=== PATIENT | male | born 1950 | race Caucasian/White ===

== ENCOUNTER → 2022-12-11 14:36 | Outpatient (CLI) | payer MEDICARE, OTHER, SELFPAY ==
--- NOTE | 2022-12-15 07:29 | PM.PFT.1 ---
Pulmonary Function Test Referral & Results Date Patient Seen: 12/11/22 Results: The spirometry demonstrates an FVC of 4.73 L which is 99% of predicted. The FEV1 was measured at 2.96 L which is 84% of predicted. The FEV1/FVC ratio was 63 which is 84% of predicted. Following the administration of bronchodilator there was 20% improvement in FEF 25-75%. Lung volumes show an SVC of 4.41 L which is 90% of predicted. The diffusing capacity was measured at 26.33 which is 75% of predicted. No hemoglobin value was provided, so no correction for potential anemia could be made, if appropriate. The maximum voluntary ventilation was normal Interpretation: This study demonstrates mild obstructive lung disease based on reduction FEV1 as well as FEV1/FVC ratio. There is evidence of some benefit following bronchodilator particularly small airway flow as demonstrated by the improvement in the FEF 25-75% as above There is a moderate reduction diffusing capacity suggesting the presence of disease at the capillary alveolar level as well There is a minimal reduction in lung volumes suggesting the possibility of very minimal restrictive lung disease Clinical correlation suggested
== END ==
PROVIDERS: Family Provider Family Medicine; PCP Family Medicine; Referring Provider Internal Medicine Pulmonary Disease; Visit Provider Internal Medicine Pulmonary Disease
DX: J47.9 Bronchiectasis, uncomplicated (principal); J98.8 Other specified respiratory disorders
CPT/HCPCS: 94060; 94726; 94729

== ENCOUNTER → 2023-05-07 15:11 | Outpatient (CLI) | payer MEDICARE, OTHER, SELFPAY ==
--- NOTE | 2023-05-07 | DI.CT.S_ITS ---
PROCEDURE: CT CHEST WO CON INDICATIONS: Bronchiectasis, uncomplicated TECHNIQUE: Noncontrast 5 mm thick sections acquired from the pulmonary apices to the posterior costophrenic angles. 1 mm lung window, 5 mm thick coronal and sagittal and 7 mm axial MIP reformats were then acquired. For radiation dose reduction, the following was used: automated exposure control, adjustment of mA and/or kV according to patient size. COMPARISON: [facility], CT, CT CHEST WITHOUT CONTRAST, 10/20/2022, 15:51. FINDINGS: Image quality: Excellent. Lungs and pleura: Interval decrease in consolidation of the medial right middle lobe. Persistent bronchiectasis with mucous impaction and tree-in-bud nodules. Similar volume loss present. There are new dependent regions of mucous impaction and tree-in-bud nodules in the left lower lobe. Mediastinum: Heart size is normal. No pericardial effusion. No mediastinal adenopathy by size criteria. Thoracic aorta and central pulmonary arteries are normal in size. Esophagus is normal in caliber. No hiatal hernia. Bones and chest wall: No suspicious bony lesions. No vertebral body compression fractures. No axillary or supraclavicular adenopathy by size criteria. Thyroid gland is unremarkable . Abdomen: Visualized upper abdominal solid organs and bowel loops appear normal in the absence of contrast. IMPRESSION: Waxing and waning mucous impaction, centrilobular nodules and tree-in-bud nodules, particularly within the right middle lobe and lingula. 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 Additional site of dependent centrilobular nodules and tree-in-bud nodules within the left lower lobe. This could be a continuation of ongoing infection, but aspiration is not excluded given distribution. Correlate with risk factors of aspiration and consider speech pathology consultation. Dictated by: Bro Helm M.D. on 05/10/2023 at 9:28 Approved by: Bro Helm M.D. on 05/10/2023 at 9:41
== END ==
PROVIDERS: Family Provider Family Medicine; PCP Family Medicine; Referring Provider Internal Medicine Pulmonary Disease; Visit Provider Internal Medicine Pulmonary Disease
DX: J47.9 Bronchiectasis, uncomplicated (principal)
CPT/HCPCS: 71250

== ENCOUNTER → 2023-06-30 10:27 | Outpatient (CLI) | payer MEDICARE, OTHER, SELFPAY ==
--- NOTE | 2023-06-30 | DI.RAD.S_ITS ---
PROCEDURE: FL BARIUM SWALLOW INDICATIONS: Unspecified foreign body in respiratory tract, par COMPARISON: None. FINDINGS: Function: There is normal esophageal peristalsis. No elicited gastroesophageal reflux. There is normal transit of a calibrated barium tablet through the esophagus into the stomach. Morphology: Air-contrast images demonstrate normal mucosal morphology. Single contrast views show no esophageal strictures, extrinsic mass effects, or diverticula. Limited images of the stomach demonstrate normal appearance. IMPRESSION: No evidence of aspiration or penetration. Please see speech pathology report for complete findings. Dictated by: Samm Roque M.D. on 06/30/2023 at 14:37 Approved by: Samm Roque M.D. on 06/30/2023 at 14:38
--- NOTE | 2023-06-30 14:28 | ST.SWALLOW ---
Visit Care Team Role Provider Type Betsy Chambers MD Family Provider Non-Staff Primary Care Provider Specialty: Family Practice Address: [address] [place] [address], [id number] Email: Rebecca Wright MD Attending Provider Non-Staff Referring Provider Specialty: Pulmonology Address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 Wright, Pulmonology Setting Setting Outpatient Care Patient Information Identification Type Name,Date of Patient History Pt was seen for a Modified Barium Swallow Study (MBSS) at the referral of his pulmnologist , Dr. Rebecca Wright. Pt was referred for MBSS due to suspicion of recurrent aspiration. Pt had a chest CT on 05/07/23, which indicated ( per report): Waxing and waning mucous impaction, centrilobular nodules and tree -in-bud nodules, particularly within the right middle lobe and lingula. 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 Additional site of dependent centrilobular nodules and tree-in-bud nodules within the left lower lobe. This could be a continuation of ongoing infection, but aspiration is not excluded given distribution. MBSS recommended. Pt reports a PMH that includes : bronchiectomy diagnosis 2014 ; pluricy; and pneumonia 2019 and 2014. Most recently, in August 2022, the pt had pneumonia for 4 months before being treated in November 2022. During that time he reported experiencing sternal pressure with swallowing that resolved with the PNA. Pt noted that in 2019, he was under a lot of stress and was using THC for anxiety. He stated that as a result of smoking THC, he lost his voice . Additionally, during that time, pt reported an incident where he started to eat a hot waffle with jam. He stated that it was so hot that he gasped, inhaling a piece of the waffle. After that incident he had difficulty with swallowing, which he states has since resolved. Subjective Observations Pt was seated in the fluoroscopy chair with instructions and procedure described for him. Pt indicated he understood and agreed to proceed. Patient Positioning Position View Lat-A/P Imaging Lateral View Textures Administered Trials Presented Thin Liquid via Spoon (IDDSI 0 ),Thin Liquid via Cup (IDDSI 0 ),Extremely Thick Liquid via Spoon (IDDSI 4),Regular (IDDSI 7) Barium Tablet Yes The IDDSI Framework Protocol: IDDSI.1 Oral Impairment Source: The Modified Barium Swallow Impairment Profile (MBSImP??) Lip Closure No labial escape Tongue Control During Bolus Hold Cohesive bolus between tongue to palatal seal Bolus Preparation/Mastication Timely & efficient chewing & mashing Bolus Transport/Lingual Motion Brisk tongue motion Oral Residue Complete oral clearance Initiation of Pharyngeal Swallow Bolus head at posterior angle of ramus (first hyoid excursion) Additional Oral Impairment Observations OME and DKS were observed to be WNL. Mastication was adequate with rotary chew pattern. Bolus formation, control and AP transition were observed to be WNL. Pharyngeal Impairment Source: The Modified Barium Swallow Impairment Profile (MBSImP??) Soft Palate Elevation No bolus between soft palate & pharyngeal wall Laryngeal Elevation Comp.sup.move.thyroid cart.w/ comp.approx.arytenoids to epiglot petiole Anterior Hyoid Excursion Partial anterior movement Epiglottic Movement Complete inversion Laryngeal Vestibular Closure Complete; no air/contrast in laryngeal vestibule Pharyngeal Stripping Wave Present - complete Pharyngoesophageal Segment Opening Partial distention/partial duration; partial obstruction of flow Tongue Base Retraction No contrast between tongue base & posterior pharyngeal wall Pharyngeal Residue Collection of residue within/ on pharyngeal structures Location Diffuse (>3 areas) Additional Pharyngeal Impairment Mild base of tongue weakness Observations was observed with adequate laryngeal elevation. Minimal hyoid movement appeared to negatively affect the PES opening extension and duration . Trace pharyngeal pooling was observed in the valeculla and the pyriform sinuses with liquids and semi-solid trials. The greatest valecullar pooling was with the cookie trial. The valecullar pooling of the cookie, along with with the reduced PES opening, resulted in the pt needing ~7 swallows to clear half of a Tasneem Doone. All other observations of the pharyngeal swallow were observed to be WFL. No penetration nor aspiration was observed. A/P View Textures Administered Trials Presented Thin Liquid via Spoon (IDDSI 0 ),Regular (IDDSI 7) The IDDSI Framework Protocol: IDDSI.1 A/P View Observations Pharyngeal Contraction Complete Esophageal Clearance Upright Position Complete clearance; esophageal coating Vocal Fold Function Good Esophageal Function WFL Additional A-P Observations Thin barium liquid and an 11mm barium tablet were used in trials. Esophageal phase of swallow was observed to be WNL . Clinical Impressions Findings Overall, the pt's swallow was observed to be WFL. He does have greater difficulty with swallowing solids (See above pharyngeal phase details). He was eventually able to clear all residue without aspiration or laryngeal penetration. Patient Appropriate for Therapy No Recommendations Diet Comments No diet changes are recommended at this time
== END ==
PROVIDERS: Family Provider Family Medicine; PCP Family Medicine; Referring Provider Internal Medicine Pulmonary Disease; Visit Provider Internal Medicine Pulmonary Disease
DX: T17.908S Unspecified foreign body in respiratory tract, part unspecified causing other injury, sequela (principal)
CPT/HCPCS: 74220; 92611

== ENCOUNTER 2023-07-06 11:11 | Outpatient (RCR) | payer MEDICARE, OTHER, SELFPAY ==
--- NOTE | 2023-07-06 13:29 | ST.OPIE ---
Visit Care Team Role Provider Type Betsy Chambers MD Family Provider Non-Staff Primary Care Provider Specialty: Family Practice Address: [address] [place] [address], [address] Email: Rebecca Wright MD Attending Provider Non-Staff Referring Provider Specialty: Pulmonology Address: [facility] [place], [address] Email: Speech-Language Pathology Initial Evaluation DATABASE SECURITY EXPERT Clinical Swallow Evaluation Start: 07/06/23 13:00 Freq: Status: Active Protocol: Document 07/06/23 13:01 CHRISTO (Rec: 07/06/23 13:29 MA [id number]) Clinical Swallow Evaluation Session Time Visit Start Time 11:30 Visit Stop Time 12:30 Total Visit Minutes 60 Visit Information Visit Number 1 Plan of Care Dates Eval Only Insurance Information Medicare Referral Referring Provider Rebecca Wright Reason for Referral Aspiration, chronic cough Setting Assessment Location Outpatient Care Visit Type Note Type Initial evaluation Patient Information Identification Type Name History Pt is a 72 year old male seen this date for swallow evaluation. Pt was recently seen for a Modified Barium Swallow Study (MBSS) on 06/30/23 at the referral of his pulmnologist , Dr. Rebecca Wright. Pt was referred for MBSS due to suspicion of recurrent aspiration. Pt had a chest CT on 05/07/23, which indicated ( per report): Waxing and waning mucous impaction, centrilobular nodules and tree -in-bud nodules, particularly within the right middle lobe and lingula. 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 Additional site of dependent centrilobular nodules and tree-in-bud nodules within the left lower lobe. This could be a continuation of ongoing infection, but aspiration is not excluded given distribution. MBSS recommended. Pt reports a PMH that includes : bronchiectomy diagnosis 2014 ; pluricy; and pneumonia 2019 and 2014. Most recently, in August 2022, the pt had pneumonia for 4 months before being treated in November 2022. During that time he reported experiencing sternal pressure with swallowing that resolved with the PNA. Pt noted that in 2019, he was under a lot of stress and was using THC for anxiety. He stated that as a result of smoking THC, he lost his voice . Additionally, during that time, pt reported an incident where he started to eat a hot waffle with jam. He stated that it was so hot that he gasped, inhaling a piece of the waffle. After that incident he had difficulty with swallowing, which he states has since resolved. Difficulties following Pt timeline of events d/t Pt jumping around talking about events that happened from 2014 to 2022. However, Pt reports he had an endoscopy in October 2022 indicating, per patient, mild irriation, possible GERD . Pt reports he does not take medication for GERD and instead eases symptoms by following a strict diet as well as sleeping with head elevated. Pt denies any swallowing or breathing trouble at this time or issues with GERD. Pt denies any recent occurrences of choking/ coughing while eating and consumes regular solids and thin liquids at home. Pt reports he has been feeling good since being treated for PNA in November. Pt had a MBSS completed on with the following impressions/recommendations: Clinical Impressions Findings Overall, the pt's swallow was observed to be WFL. He does have greater difficulty with swallowing solids (See above pharyngeal phase details). He was eventually able to clear all residue without aspiration or laryngeal penetration. Patient Appropriate for Therapy No Recommendations Diet Comments No diet changes are recommended at this time Subjective Observations Pt arrived to evaluation on time. Pt communicated medical hx and hx of PNA/swallowing/ voice issues. However, Pt reports he does not have any swallowing issues at this time and denies any recent coughing/choking or feeling of food getting stuck. Reported by Patient/Caregiver Pain/Discomfort No Current Diet Regular (IDDSI 7) The IDDSI Framework Protocol: IDDSI.1 Objective Assessment Mental Status Alert,Responsive,Cooperative Oral Integrity WFL Dentition Within normal limits Comment OME appeared to be WNL. Food and Liquid Trials Position During Assessment Upright (90 degrees) Liquids Trialed Thin (IDDSI 0) Solid Trials Regular (IDDSI 7) Oral Impairment Within normal limits Oral Phase Comments Pt consumed about 4 oz of thin water via cup and 2 jerica crackers. Oral phase- for thin water Pt demonstrated good oral acceptance and containment, adequate sip size and rate, tiemly ap transport . For jerica crackers, Pt demonstrated adequate bite size and rate, timely mastication with timely ap transport. Pharyngeal Impairment Within normal limits Pharyngeal Phase Comments Pharyngeal phase for thin liquids demonstrated no overt s/s of aspiration/penetration with clear vocal quality. For jerica crackers Pt demonstrated no overt s/s of aspiration/penetration however multiple swallows to clear bolus. Pt did not report globus sesnsation or feeling of food stuck in throat. Pt independently alternated liquids/solids to assist with clearance. Fatigue/Endurance Endurance WNL The IDDSI Framework Protocol: IDDSI.1 Findings Swallowing Function Within normal limits Severity of Swallow Impairment Within normal limits Prognosis Good Impact on Safety and Functioning No limitations Recommendations Instrumental Assessment No Swallowing Treatment No Recommended Solids Regular (IDDSI 7) Recommended Liquids Thin (IDDSI 0) Other Recommendations ST recommends Pt continue to consume current diet of regular solids and thin liquids. ST provided Pt educational handout on reflex precautions. ST suggested Pt coming in for a few sessions to learn safe swallowing strategies/swallow exercises to address pharyngeal residue and reduced UES opening shown on MBSS. However, Pt declined therapy at this time and reported he is currently having no swallow issues and will get re-referred if swallowing difficulties start happening again. Safety Precautions/Swallowing Remain upright (90 degrees) Recommendations during all oral intake,Upright position at least 30 minutes after meals,Small bites and sips when eating,Slow rate; swallow between bites, Alternate liquids and solids Education Patient/Caregiver Education Described results of evaluation,Patient expressed understanding of evaluation
--- NOTE | 2023-07-06 13:30 | ST.OPPOC ---
Physical, Occupational & Speech Therapy At [facility] Visit Care Team Role Provider Type Betsy Chambers MD Family Provider Non-Staff Primary Care Provider Address: [place], [address] Rebecca Wright MD Attending Provider Non-Staff Referring Provider Address: [facility] [place], [address] Speech Pathology Plan of Care Plan of Care Dates Eval Only Referring Provider Rebecca Wright Patient History Pt is a 72 year old male seen this date for swallow evaluation. Pt was recently seen for a Modified Barium Swallow Study (MBSS) on 06/30/23 at the referral of his pulmnologist , Dr. Rebecca Wright. Pt was referred for MBSS due to suspicion of recurrent aspiration. Pt had a chest CT on 05/07/23, which indicated ( per report): Waxing and waning mucous impaction, centrilobular nodules and tree -in-bud nodules, particularly within the right middle lobe and lingula. 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 Additional site of dependent centrilobular nodules and tree-in-bud nodules within the left lower lobe. This could be a continuation of ongoing infection, but aspiration is not excluded given distribution. MBSS recommended. Pt reports a PMH that includes : bronchiectomy diagnosis 2014 ; pluricy; and pneumonia 2019 and 2014. Most recently, in August 2022, the pt had pneumonia for 4 months before being treated in November 2022. During that time he reported experiencing sternal pressure with swallowing that resolved with the PNA. Pt noted that in 2019, he was under a lot of stress and was using THC for anxiety. He stated that as a result of smoking THC, he lost his voice . Additionally, during that time, pt reported an incident where he started to eat a hot waffle with jam. He stated that it was so hot that he gasped, inhaling a piece of the waffle. After that incident he had difficulty with swallowing, which he states has since resolved. Difficulties following Pt timeline of events d/t Pt jumping around talking about events that happened from 2014 to 2022. However, Pt reports he had an endoscopy in October 2022 indicating, per patient, mild irriation, possible GERD. Pt reports he does not take medication for GERD and instead eases symptoms by following a strict diet as well as sleeping with head elevated. Pt denies any swallowing or breathing trouble at this time or issues with GERD. Pt denies any recent occurrences of choking/ coughing while eating and consumes regular solids and thin liquids at home. Pt reports he has been feeling good since being treated for PNA in November. Pt had a MBSS completed on 06/30/23 with the following impressions/recommendations: Clinical Impressions Findings Overall, the pt's swallow was observed to be WFL. He does have greater difficulty with swallowing solids (See above pharyngeal phase details). He was eventually able to clear all residue without aspiration or laryngeal penetration. Patient Appropriate for Therapy No Recommendations Diet Comments No diet changes are recommended at this time MBS Comments Overall, the pt's swallow was observed to be WFL . He does have greater difficulty with swallowing solids (See above pharyngeal phase details). He was eventually able to clear all residue without aspiration or laryngeal penetration. Comment: ST recommends Pt continue to consume current diet of regular solids and thin liquids. ST provided Pt educational handout on reflex precautions. ST suggested Pt come in for a few sessions to learn safe swallowing strategies/swallow exercises to address pharyngeal residue and reduced UES opening shown on MBSS. However, Pt declined therapy at this time and reported he is currently having no swallow issues and will get re-referred if swallowing difficulties start happening again. Electronically Signed by: ABDIEL Raymond 07/06/23 [id number] If you are in agreement with this Plan of Care, please return a signed and dated copy. I have reviewed this Plan of Care and certify that the skilled therapy services above are required to meet the patient?s needs. Physician Signature Date Printed Name and Credentials Clinical Instructor Signature Printed Name and Credentials
== END 2023-07-19 14:19 | disposition home or self-care (01) ==
LOC: SP 11:11
PROVIDERS: Family Provider Family Medicine; PCP Family Medicine; Referring Provider Internal Medicine Pulmonary Disease; Visit Provider Internal Medicine Pulmonary Disease
DX: R05.3 Chronic cough (principal); T17.908S Unspecified foreign body in respiratory tract, part unspecified causing other injury, sequela
CPT/HCPCS: 92610

== ENCOUNTER → 2024-03-29 12:52 | Outpatient (CLI) | payer MEDICARE, OTHER, SELFPAY ==
--- NOTE | 2024-03-29 12:53 | DI.CT.S_ITS ---
PROCEDURE: CT CHEST WO CON INDICATIONS: BRONCHIECTASIS W/O COMPLICATION TECHNIQUE: Noncontrast 5 mm thick sections acquired from the pulmonary apices to the posterior costophrenic angles. 1 mm lung window, 5 mm thick coronal and sagittal and 7 mm axial MIP reformats were then acquired. For radiation dose reduction, the following was used: automated exposure control, adjustment of mA and/or kV according to patient size. COMPARISON: Outside Facility, , [facility], 11/24/2022, 17:25. [facility], CT, CT CHEST WITHOUT CONTRAST, 10/20/2022, 15:51. [facility], CT, CT CHEST WO CON, 05/07/2023, 15:15. FINDINGS: Image quality: Diagnostic. Lower Neck: No enlarged lymph nodes. Thyroid: No thyroid nodules which require sonographic follow up, per consensus guidelines. Axillae: No enlarged lymph nodes. Chest Wall: Unremarkable. Bones: No acute fractures. No aggressive appearing lytic or blastic osseous lesions. Minimal multilevel degenerative changes of the spine. Lungs and Pleura: No pneumothorax or pleural effusions. Compared to CT chest dated May 07, 2023, small new centrilobular/tree-in-bud nodules in the right lower lobe best seen on the MIP reconstructions (4/111). Similar to slightly increased centrilobular /tree-in-bud nodules in the lingula and middle lobe as well as mucous plugging, best seen on the MIP reconstruction (4/98). Subsegmental volume loss in the middle lobe and lingula with associated bronchiectasis, as before. Similar appearance of centrilobular and tree-in-bud nodules in the left lower lobe (4/102). Biapical pleural parenchymal scarring. Multiple scattered solid pulmonary nodules which are stable. For example: -right upper lobe, measures 2 mm (3/136) -left upper lobe, measures 2 mm (3/163). Heart: Heart size is normal. No pericardial effusion. Thoracic Vessels: The aorta and pulmonary arteries demonstrate normal size. Left vertebral artery arises directly from the aortic arch, normal variant. Mediastinum and Jessica: No enlarged lymph nodes. Esophagus: No wall thickening. No hiatal hernia. Upper Abdomen: Visualized upper abdomen solid organs and bowel loops appear normal. IMPRESSION: 1. Compared to CT chest dated May 07, 2023, small new centrilobular/tree-in-bud nodules in the right lower lobe suggestive of infection and/or atypical inflammation. 2. As before, there is waxing and waning centrilobular and tree-in-bud nodules as well as mucous impaction, notably in the middle lobe and lingula with associated bronchiectasis/subsegmental volume loss which may represent non tuberculosis mycobacterium infection. 3. Multiple subcentimeter scattered solid, noncalcified pulmonary nodules which are stable. Dictated by: Linnea Gibbons M.D. on 03/30/2024 at 12:26 Approved by: Linnea Gibbons M.D. on 03/30/2024 at 12:40
== END ==
PROVIDERS: Family Provider Family Medicine; PCP Family Medicine; Referring Provider Internal Medicine Pulmonary Disease; Visit Provider Internal Medicine Pulmonary Disease
DX: J47.9 Bronchiectasis, uncomplicated (principal); R91.8 Other nonspecific abnormal finding of lung field
CPT/HCPCS: 71250

== ENCOUNTER → 2024-04-03 13:15 | Outpatient (CLI) | payer MEDICARE, OTHER, SELFPAY | PROVIDERS: Family Provider Family Medicine; PCP Family Medicine; Referring Provider Internal Medicine Pulmonary Disease; Visit Provider Internal Medicine Pulmonary Disease | DX: J47.9 Bronchiectasis, uncomplicated (principal); R94.2 Abnormal results of pulmonary function studies | CPT/HCPCS: 94060; 94726; 94729 ==

== ENCOUNTER → 2024-10-18 13:10 | Outpatient (CLI) | payer MEDICARE, OTHER, SELFPAY ==
--- NOTE | 2024-10-18 13:11 | DI.CT.S_ITS ---
PROCEDURE: CT CHEST WO CON INDICATIONS: bronciectasis wo complication TECHNIQUE: Noncontrast 5 mm thick sections acquired from the pulmonary apices to the posterior costophrenic angles. 1 mm lung window, 5 mm thick coronal and sagittal and 7 mm axial MIP reformats were then acquired. For radiation dose reduction, the following was used: automated exposure control, adjustment of mA and/or kV according to patient size. COMPARISON: [facility], CT, CT CHEST WO CON, 03/29/2024, 13:14. FINDINGS: Image quality: Diagnostic. Lower Neck: No enlarged lymph nodes. Thyroid: No thyroid nodules which require sonographic follow up, per consensus guidelines. Axillae: No enlarged lymph nodes. Chest Wall: Unremarkable. Bones: Unremarkable. Lungs and Pleura: No pneumothorax or pleural effusions. Similar findings of bronchiectasis and volume loss in the right middle lobe and lingula. Interval development of a focal region of consolidation in the medial right middle lobe measuring 2.1 x 2.6 cm (series 3, image 245). Waxing and waning centrilobular nodules are also seen in the dependent portions of the lungs. Heart: Heart size is normal. No pericardial effusion. Thoracic Vessels: The aorta and pulmonary arteries demonstrate normal size. Mediastinum and Jessica: No enlarged lymph nodes. Esophagus: No wall thickening. No hiatal hernia. Upper Abdomen: Visualized upper abdomen solid organs and bowel loops appear normal. IMPRESSION: Waxing and waning centrilobular and tree-in-bud nodules are again noted. Findings may represent a continued infectious process such as non tuberculosis mycobacterium infection. Alternatively, findings could also represent aspiration. Correlate with risk factors and consider speech pathology referral if not performed in the past. New focus of consolidation in the medial right middle lobe. Findings probably represent infection, less likely malignancy. Recommend short-term follow-up (3 months) with chest CT to ensure resolution. Dictated by: Bro Helm M.D. on 10/18/2024 at 15:23 Approved by: Bro Helm M.D. on 10/18/2024 at 15:27
== END ==
PROVIDERS: Family Provider Family Medicine; PCP Family Medicine; Referring Provider Internal Medicine Pulmonary Disease; Visit Provider Internal Medicine Pulmonary Disease
DX: J47.9 Bronchiectasis, uncomplicated (principal); R91.8 Other nonspecific abnormal finding of lung field
CPT/HCPCS: 71250

== ENCOUNTER → 2025-03-14 12:12 | Outpatient (CLI) | payer MEDICARE, OTHER, SELFPAY ==
--- NOTE | 2025-03-14 12:20 | DI.CT.S_ITS ---
PROCEDURE: CT CHEST WO CON INDICATIONS: BRONCHIECASIS WO COMPLICATION TECHNIQUE: Noncontrast 5 mm thick sections acquired from the pulmonary apices to the posterior costophrenic angles. 1 mm lung window, 5 mm thick coronal and sagittal and 7 mm axial MIP reformats were then acquired. For radiation dose reduction, the following was used: automated exposure control, adjustment of mA and/or kV according to patient size. COMPARISON: [facility], CT, CT CHEST WITHOUT CONTRAST, 10/20/2022, 15:51. [facility], CT, CT CHEST WO CON, 10/18/2024, 13:16. FINDINGS: Image quality: Diagnostic. Lower Neck: No enlarged lymph nodes. Thyroid: No thyroid nodules which require sonographic follow up, per consensus guidelines. Axillae: No enlarged lymph nodes. Chest Wall: Unremarkable. Bones: No suspicious osseous lesion. Lungs and Pleura: No pneumothorax or pleural effusions. A few areas of tree-in-bud nodular opacity, similar pattern and extent. Mild bronchiectasis in the right middle lobe with associated distal mucus airway plugging. Right middle lobe opacity is slightly decreased. No significant acute ground-glass opacity. Heart: Heart size is normal. Mild LAD coronary artery calcification. No pericardial effusion. Thoracic Vessels: The aorta and pulmonary arteries demonstrate normal size. Mediastinum and Jessica: No enlarged lymph nodes. Esophagus: No wall thickening. No hiatal hernia. Upper Abdomen: Visualized upper abdomen solid organs and bowel loops appear normal. IMPRESSION: Overall similar findings. Mild scattered areas of tree-in-bud opacity. Bronchiectasis most pronounced in the right middle lobe. Findings most consistent with the sequelae of bronchitis. Mild opacity in the right middle lobe is slightly decreased. Dictated by: Niko Ferrari M.D. on 03/15/2025 at 14:11 Approved by: Niko Ferrari M.D. on 03/15/2025 at 14:21
== END ==
PROVIDERS: Family Provider Family Medicine; PCP Physician Assistant; Referring Provider Internal Medicine Pulmonary Disease; Visit Provider Internal Medicine Pulmonary Disease
DX: J47.9 Bronchiectasis, uncomplicated (principal)
CPT/HCPCS: 71250